=== PATIENT | male | born 1995 | race Caucasian/White ===

== ENCOUNTER 2021-05-10 12:22 | Emergency (ER) | payer OTHER ==
[~2021-05-10] VITALS: Ht 175 cm; Wt 72.5 kg
--- NOTE | 2021-05-10 12:41 | ED Upper Extremity ---
General Chief Complaint: Upper Extremity Stated Complaint: L THUMB PAIN Source: patient Exam Limitations: no limitations (RISHABH CHIN APRN) History of Present Illness Date Seen by Provider: May 10, 2021 Time Seen by Provider: 12:30 Initial Comments Patient states that his thumb was smashed in some sort of a lid at work. He works for a [employer]. Onset: this morning Severity: moderate Pain/Injury Location: left thumb Method of Injury: unknown Modifying Factors: Worse With Movement (RISHABH CHIN APRN) Allergies and Home Medications Allergies Coded Allergies: No Known Drug Allergies (Unverified , 05/10/21) Patient Home Medication List Home Medication List Reviewed: Yes (RISHABH CHIN APRN) Review of Systems Constitutional: see HPI EENTM: see HPI Respiratory: no symptoms reported Cardiovascular: no symptoms reported Genitourinary: no symptoms reported Musculoskeletal: no symptoms reported Skin: no symptoms reported Psychiatric/Neurological: No Symptoms Reported (RISHABH CHIN APRN) Physical Exam Vital Signs Vital Signs - First Documented 05/10/21 12:30 Temp 36.1 Pulse 105 Resp 18 B/P (MAP) 128/90 (103) Pulse Ox 98 O2 Delivery Room Air (NEHA ROSE MD) Vital Signs Capillary Refill : (RISHABH CHIN APRN) Height, Weight, BMI Height: '" Weight: lbs. oz. kg; BMI Method: General Appearance: WD/WN, no apparent distress HEENT: PERRL/EOMI, normal ENT inspection Neck: non-tender, full range of motion Respiratory: no respiratory distress, no accessory muscle use Gastrointestinal: normal bowel sounds, non tender, soft Elbow/Forearm: normal inspection, non-tender Hand: Left (Left thumb is swollen over the IP joint, limited range of motion secondary to pain. Abrasion to either side of the thumb.) Neurologic/Psychiatric: alert, normal mood/affect, oriented x 3 Skin: normal color, warm/dry (RISHABH CHIN APRN) Departure Impression Primary Impression: Thumb contusion Disposition: ADMITTED INPATIENT Condition: Stable Admissions Decision to Admit Reason: Admit from ER (General) Decision to Admit/Date: May 10, 2021 Time/Decision to Admit Time: 13:09 (RISHABH CHIN APRN) Departure-Patient Inst. Referrals: NO,LOCAL PHYSICIAN (PCP/Family) Primary Care Physician ATTENDING PHYSICIAN NOTE: I was physically present as attending physician in the emergency department during the care of this patient, but I was not directly involved in the decision making or delivery of care for this patient. (NEHA ROSE MD) RISHABH CHIN APRN May 10, 2021 12:41 NEHA ROSE MD May 11, 2021 06:13
[2021-05-10] MEDS ORDERED: TETANUS,DIPTH,PERTUSS P/F (BOOSTRIX) 0.5 ML VIAL IM ONE (12:45)
--- NOTE | 2021-05-10 12:59 | Diagnostic Imaging Report ---
INDICATION: Left hand injury. TECHNIQUE: AP, oblique, and lateral views of the left hand were obtained. FINDINGS: No fracture or acute bony abnormality is seen. The joint spaces are unremarkable. IMPRESSION: Negative left hand. Dictated by: Dictated on workstation # [id number]
[2021-05-10 13:20] VITALS: BP 128/90
== END 2021-05-10 13:20 | disposition home or self-care (01) ==
LOC: ER 12:25
DX: S60.012A Contusion of left thumb without damage to nail, initial encounter (principal); Z23 Encounter for immunization; W23.1XXA Caught, crushed, jammed, or pinched between stationary objects, initial encounter
CPT/HCPCS: 29130; 73130; 90715